=== PATIENT | female | born 1960 | race American Indian/Alaskan Native ===

== ENCOUNTER 2019-01-27 07:27 | Emergency (ER) | payer OTHER ==
[2019-01-27] MEDS ORDERED: HYDROcodone/ACETAMINOPHEN 5-325 MG TAB PO ONE (09:13)
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
[2019-01-27 13:18] VITALS: BP 154/87
== END 2019-01-27 12:55 | disposition left against medical advice (07) ==
LOC: ED 07:27
DX: M25.552 Pain in left hip (principal); M25.561 Pain in right knee; M25.562 Pain in left knee; R07.89 Other chest pain; R42 Dizziness and giddiness; I10 Essential (primary) hypertension; Z96.642 Presence of left artificial hip joint; V89.2XXA Person injured in unspecified motor-vehicle accident, traffic, initial encounter; Y93.89 Activity, other specified; Y92.488 Other paved roadways as the place of occurrence of the external cause; Y99.8 Other external cause status
CPT/HCPCS: 71046; 93005; 93010; 99284